=== PATIENT | male | born 1945 | race Asian ===

== ENCOUNTER → 2022-02-13 | Outpatient (CLI) | payer MEDICARE ==
[~2022-02-13] MED LIST: IODINE/POTASS IOD (LUGOLS) BOTTLE ONE
--- NOTE | 2022-02-15 10:49 | NM ---
EXAMINATION TYPE: NM DatScan Brain SPECT DATE OF EXAM: 02/13/2022 COMPARISON: NONE HISTORY: Tremor TECHNIQUE: 10 drops of Lugol's solution was administered 1 hour prior to injection as a thyroid bloc mirtha agent. After the administration of 4.6 mCi I-123 Ioflupane DaTscan. Delayed images obtained. SP ECT images of the brain were acquired with axial and coronal reconstructions. FINDINGS: Abnormal uptake present along the striata bilaterally. IMPRESSION: Abnormal SAKSHI scan
== END | disposition home or self-care (01) ==
LOC: RADNMMAIN 10:31
PROVIDERS: ATTEND Psychiatry & Neurology Neurology
DX: R94.02 Abnormal brain scan (principal)
CPT/HCPCS: 78803; A9584

== ENCOUNTER → 2022-09-21 | Outpatient (CLI) | payer MEDICARE ==
[2022-09-21 20:37] LABS: C Reactive Protein <0.30 mg/dL (0.00-0.80)
== END | disposition home or self-care (01) ==
LOC: LABWHC1 10:51
PROVIDERS: ATTEND Psychiatry & Neurology Neurology
DX: G62.9 Polyneuropathy, unspecified (principal); R73.9 Hyperglycemia, unspecified
CPT/HCPCS: 36415; 82607; 82747; 83036; 84165; 84207; 85652; 86038; 86039; 86140; 86334; 86618

== ENCOUNTER → 2023-01-24 | Outpatient (CLI) | payer MEDICARE ==
--- NOTE | 2023-01-24 11:47 | FL ---
EXAMINATION TYPE: FL barium swallow DATE OF EXAM: 01/24/2023 11:16 AM COMPARISON: None CLINICAL INDICATION:Male, 77 years old with history of R13.19 DYSPHAGIA; PHH, Parkinson's disease TECHNIQUE: The procedure was explained and patient history elicited. All patient questions were ans wered prior to start of procedure. Multiple spot fluoroscopic images of the esophagus were obtained a fter the oral ingestion of effervescent crystals and liquid barium as the contrast agent. Fluoroscopic time: 20 seconds Fluoroscopic images: 95 Total DAP: 584.60 mGycm FINDINGS: The esophagus demonstrates normal primary and secondary peristalsis. There is abnormal retained cont rast within the upper esophagus/hypopharynx on limited exam images. The patient subsequently aspirate d and examination was ended to prevent further aspiration. IMPRESSION: Limited examination due to patient aspirating. There was abnormal retained contrast within the upper esophagus/hypopharynx. Recommend speech therapy consult with modified barium swallow and direct visua lization of the upper esophagus/hypopharynx.
== END | disposition home or self-care (01) ==
LOC: RADUSWWP 10:33
PROVIDERS: ATTEND Otolaryngology
DX: G20 Parkinson's disease (principal); R13.19 Other dysphagia
CPT/HCPCS: 74220

== ENCOUNTER → 2023-04-16 | Outpatient (CLI) | payer MEDICARE ==
--- NOTE | 2023-04-18 09:43 | CT ---
EXAMINATION TYPE: CT sinus wo con DATE OF EXAM: 04/16/2023 COMPARISON: None HISTORY: POST NASAL DRIP THROAT PAIN CT DLP: 615.[address] of the paranasal sinuses was performed in the axial and coronal planes. Bone and soft tissue settings are submitted. The paranasal sinuses demonstrate normal aeration and development. There is a partial medial maxillar y antrectomy and partial ethmoidectomy. Mild mucosal thickening is seen at the base of the right maxi llary sinus. No obstructive changes are seen. Remaining ethmoid air cells demonstrate mild opacificat ion superiorly. Minimal thickening frontal sinus. Minimal mucosal thickening sphenoid sinus on the le ft. Mild nasal septal deviation left to right. No bony destructive changes are seen within the field of view. IMPRESSION: Changes of chronic sinusitis and postoperative changes as discussed.
== END | disposition home or self-care (01) ==
LOC: RADCTMAIN 15:24
PROVIDERS: ATTEND Otolaryngology
DX: J32.0 Chronic maxillary sinusitis (principal); Z98.890 Other specified postprocedural states
CPT/HCPCS: 70486